=== PATIENT | male | born 1960 | race Caucasian/White ===

== ENCOUNTER → 2022-11-12 10:16 | Outpatient (BNVA) | payer OTHER, SELFPAY | PROVIDERS: PCP Internal Medicine; Visit Provider Nurse Practitioner Family | DX: J45.909 Unspecified asthma, uncomplicated (principal); R93.89 Abnormal findings on diagnostic imaging of other specified body structures; F17.200 Nicotine dependence, unspecified, uncomplicated; Z23 Encounter for immunization | CPT/HCPCS: 90471; 90677; 99202 ==

== ENCOUNTER 2022-12-19 11:00 | Outpatient (REF) | payer OTHER, SELFPAY | END 2022-12-19 11:01 | disposition home or self-care (01) | LOC: HO.RESP 11:00 | PROVIDERS: PCP Internal Medicine; Visit Provider Nurse Practitioner Family | DX: J45.909 Unspecified asthma, uncomplicated (principal) | CPT/HCPCS: 94060; 94727; 94729 ==

== ENCOUNTER 2023-01-14 10:36 | Outpatient (AMB) | payer OTHER, SELFPAY ==
[2023-01-14 11:04] VITALS: BP 128/68; PULSE 75; O2SAT 100; BMI 41.6
--- NOTE | 2023-01-14 11:04 | A.OFFVIS_ITS ---
Intake Vital Signs 01/14/23 11:04 Height 5 ft 6 in Weight 257 lb 15.053 oz BMI 41.6 BP 128/68 Blood Pressure Location Lt brachial Position Sitting Pulse 75 Pulse Source Pulse Oximeter Pulse Oximetry (%) 100 Oxygen Delivery Method Room Air Intake Visit Reasons: Cough Nurse Aide Required: No Supervisor Parking Lot: Supervisor Parking Lot offered & declined Accompanied by: Self / Same As Patient Allergies Sulfa (Sulfonamide Antibiotics) Allergy (Unknown, Verified 01/14/23 11:08) Unknown No Known Allergies Allergy (Unverified 11/12/22 10:26) Medication List - Last Reconciled 01/14/23 by Jacque Elizabeth LPN albuterol sulfate 90 mcg/actuation 2 puffs inhalation Q4-6H PRN aspirin 81 mg PO DAILY atorvastatin 80 mg PO BEDTIME azelastine (Astepro Allergy) 1 spray intranasal BID fluticasone propion-salmeterol 100-50 mcg/dose 1 inh inhalation BID hydrochlorothiazide 25 mg PO DAILY losartan 100 mg PO DAILY omeprazole 20 mg PO DAILY pregabalin 75 mg PO BID quinine-vitamin E caps PO tramadol 50 mg PO TID PRN HPI Cough HPI Details Ivan is a pleasant 61 year old male, current 1/2-1 pack per week with 20+ pack year history and underlying history of childhood asthma, environmental allergies and CVA with left sided residual weakness. He reports symptoms are reasonably controlled on Advair and Astepro. He reports significant improvements in dyspnea on exertion and wheezing since switching to Advair. Although he reports improvements in his cough, he has been using his albuterol 2-3 times per day after moderate exertion. He attributes the increase in symptoms over the past few weeks to environmental allergies and recent poor air quality. [facility] Social History (Updated 01/14/23 @ 11:10 by Jacque Elizabeth LPN) Patient Tobacco Use Status: Current everyday Tobacco user Tobacco use type: Cigarette Cigarettes Per Day: 5 Years Smoked: 30+ intermittently Review of Systems Const Denies chills, Denies excessive sweating, Denies fever(s), Denies headache(s) and Denies night sweats Eyes Denies dry eyes, Denies irritation and Denies itchy eyes ENT Reports Normal hearing present, Denies headache(s), Denies nasal congestion, Denies nasal discharge, Reports post nasal drip and Denies sore throat Card Denies chest pain, Denies chest pain at rest, Denies chest pain with activity, Denies leg edema, Denies dyspnea, Denies orthopnea and Denies paroxysmal nocturnal dyspnea Resp Denies chest congestion, Denies pain on inspiration, Denies pain with cough, Denies dyspnea, Denies stridor and Denies wheezing Musc Denies myalgias Neuro Reports Normal hearing present and Denies headache(s) Endo Denies excessive sweating Dominick/Lymph Denies lymphadenopathy Aller/Immun Denies itchy eyes, Denies seasonal rhinorrhea and Denies wheezing Physical Exam Vital Signs: Last Vital Signs Pulse 75 01/14/23 11:04 BP 128/68 01/14/23 11:04 Pulse Ox 100 01/14/23 11:04 Oxygen Delivery Method Room Air 01/14/23 11:04 BMI result Body Mass Index 41.6 Const General: cooperative, healthy appearing, comfortable, no acute distress, well developed and alert Nutritional Appearance: obese Orientation/consciousness: patient oriented x3 Limitations: ambulation with cane HEENT Head: Yes normal to inspection, Yes normocephalic and Yes atraumatic Ears: hearing grossly normal bilaterally and external ears normal Eyes General: appearance normal, both eyes and all related structures Eyelids: Yes eyelids normal Sclerae: sclerae normal EOM: EOMs intact bilaterally Neck Neck: Yes normal visual inspection and Yes no lymphadenopathy Lymphatic: no lymphadenopathy noted Chest Chest palpation & inspection: normal inspection of the chest Resp Effort & Inspection: normal respiratory effort, able to speak in complete sentences, no audible wheezes, no cough, no stridor, not tachypneic, no tripod positioning and no use of accessory muscles Auscultation: clear to auscultation bilaterally Cardio Jugular venous distension: no JVD Rate: regular rate Rhythm: regular rhythm Skin Other: warm, dry General skin exam: no rashes or lesions noted Neuro General: patient oriented x3 Cranial nerves: Yes Normal hearing present Cognition (Neuro): normal cognition Gait exam (Neuro): Normal gait present Extrem General: Yes normal to inspection, Yes capillary refill normal, Yes no clubbing, cyanosis or edema and Yes no pedal edema Psych Appearance: grossly normal and well kempt Speech and movement: Normal speech and movement present and Clear speech present Affect: normal affect Attitude: cooperative Thought process: Normal thought process present Thought content: Normal thought content present Insight: Good insight present (Psych) Judgement: Good judgement present (Psych) Results Reviewed Results Reviewed: Assessment & Plan Assessment & Plan (1) Abnormal finding on CT scan: Code(s): R93.89 - Abnormal findings on diagnostic imaging of other specified body structures (2) Tobacco dependence: Code(s): F17.200 - Nicotine dependence, unspecified, uncomplicated (3) Asthma-COPD overlap syndrome: Code(s): J44.9 - Chronic obstructive pulmonary disease, unspecified Plan Reviewed PFT which revealed findings consistent with asthma as he had significant response to bronchodilator as well as mild component of COPD. Given his increase in symptoms over the last few weeks and increased use of albuterol, recommended increasing Advair dose or adding Singulair, but patient would like to keep current regimen. Also advised patient to start a daily oral antihistamine. If symptoms worsen, instructed patient to contact office. Will follow up to review results of repeat chest CT in September 2023. Briefly we discussed his worsening chronic pain that has contributed to some deconditioning and therefore increased dyspnea. Will refer to pain management to discuss interventional options for spinal stenosis. All questions were answered and patient is in agreement of plan. Orders: Referrals Pain Management Referral M19.90 - Unspecified osteoarthritis, unspecified site, M48.00 - Spinal stenosis, site unspecified Coding Level of Care Code Est Pt Level 4 (86804) Diagnoses Abnormal finding on CT scan R93.89 Tobacco dependence F17.200 Asthma-COPD overlap syndrome J44.9
== END 2023-01-14 11:30 | disposition home or self-care (01) ==
PROVIDERS: PCP Internal Medicine; Visit Provider Nurse Practitioner Family
DX: R93.89 Abnormal findings on diagnostic imaging of other specified body structures (principal); F17.200 Nicotine dependence, unspecified, uncomplicated; J44.9 Chronic obstructive pulmonary disease, unspecified
CPT/HCPCS: 99214

== ENCOUNTER → 2023-01-14 10:36 | Outpatient (BNVA) | payer OTHER, SELFPAY | PROVIDERS: PCP Internal Medicine; Visit Provider Nurse Practitioner Family | DX: J44.9 Chronic obstructive pulmonary disease, unspecified (principal); R05.9 Cough, unspecified; I63.9 Cerebral infarction, unspecified; G81.94 Hemiplegia, unspecified affecting left nondominant side; F17.210 Nicotine dependence, cigarettes, uncomplicated | CPT/HCPCS: 99212 ==

== ENCOUNTER 2023-02-03 13:41 | Outpatient (AMB) | payer OTHER, SELFPAY ==
--- NOTE | 2023-02-03 13:47 | MHC.OFFVIS ---
Intake Vital Signs 02/03/23 13:49 Height 5 ft 6 in Weight 259 lb BMI 41.8 BP 134/63 Blood Pressure Location Lt brachial Position Sitting Respiration 4 L Pulse 88 Pulse Source Pulse Oximeter Intake Visit Reasons: Spinal stenosis, site unspecified Allergies Sulfa (Sulfonamide Antibiotics) Allergy (Unknown, Verified 02/03/23 13:51) Unknown Medication List - Last Reconciled 02/03/23 by Chelle Rivers LPN albuterol sulfate 90 mcg/actuation 2 puffs inhalation Q4-6H PRN aspirin 81 mg PO DAILY atorvastatin 80 mg PO BEDTIME azelastine (Astepro Allergy) 1 spray intranasal BID fluticasone propion-salmeterol 100-50 mcg/dose 1 inh inhalation BID hydrochlorothiazide 25 mg PO DAILY losartan 100 mg PO DAILY omeprazole 20 mg PO DAILY pregabalin 75 mg PO BID quinine-vitamin E caps PO tramadol 50 mg PO TID PRN HPI Spinal stenosis, site unspecified HPI Details The patient is a 62-year-old male referred by his pulmonary provider for spinal stenosis-related pain. He has had this pain in his lower back for many years, but it has gotten worse since 2021. It is described as 5-8/10 in intensity in the lower back. He also has polyarticular symptoms in his bilateral shoulders, bilateral knees, and ankles, as well as his right leg. He is unable to sleep normally or engage in his daily activities. Weather changes and movements make it worse, so heat, cool, topical medications, and oral medications make it feel better. He visited [facility], had an x-ray, was treated with tramadol, and was referred to physical therapy. He tried back braces and was referred back to [facility], where he had knee surgeries. [facility] diagnosed him with spinal stenosis. He had an MRI scan at [facility]. He states that his pain is affecting his standard of living and daily activities. He states that he is not able to follow his hobby. He had been diagnosed with clinical depression twice in the past and was on medication. He is not taking any medication for depression. He has been following up with his new neurologist. He denies any cardiac problems. He had both knee replacement surgeries in 2014. He has no history of diabetes mellitus. [facility] Medical History (Updated 02/02/23 @ 13:29 by Chuy Pratt) Benign hypertension Cerebral infarction due to stenosis of carotid artery Chronic fatigue syndrome Degeneration of lumbar intervertebral disc Dizziness and giddiness GERD (gastroesophageal reflux disease) Leyla filter in place Intermittent asthma Male erectile disorder Migraine without aura Osteoarthritis of knee Putti's syndrome Social History (Updated 01/14/23 @ 11:10 by Jacque Elizabeth LPN) Patient Tobacco Use Status: Current everyday Tobacco user Tobacco use type: Cigarette Cigarettes Per Day: 5 Years Smoked: 30+ intermittently Review of Systems Const All systems reviewed & are unremarkable except as noted in HPI and below Physical Exam Vital Signs: Last Vital Signs Pulse 88 02/03/23 13:49 Resp 4 L 02/03/23 13:49 BP 134/63 02/03/23 13:49 BMI result Body Mass Index 41.8 General: Appears afebrile. Alert and oriented. Mood and affect appropriate. Follows and participates in conversation appropriately. Respiratory effort is unlabored. Able to transition from sit to stand unassisted. Ambulates with bilaterally normal heel strike and toe off. He is able to stand on his toes and heels, but while standing on his toes, the right side feels subjectively weaker. Lumbar extension reproduces pain in the right lumbar area. Straight leg raise is mildly positive on the right side. Results Reviewed Results Reviewed: 12/26/21: MR LUMBAR SPINE Assessment & Plan Assessment & Plan (1) Spinal stenosis: Code(s): M48.00 - Spinal stenosis, site unspecified Plan 62-year-old male with multilevel DJD/DDD with most significant stenosis at L4-5 and mild stenosis at T12-L1 presenting with history of low back symptoms consistent with spinal stenosis with neurogenic claudication. After reviewing the MRI report, I left a voicemail for the patient to bring this a disc with the images so I can review them to assess candidacy for minimally invasive lumbar decompression at L4-5. Prior to that we can certainly offer an epidural steroid injection targeted towards right parasagittal L4-5 interspace and see how much benefit he might gain from that. His exam is consistent with lumbar radiculitis with mild weakness in the right lower extremity that would benefit from a decompression at some point in the future. Scribed for Dr. Busby by Chuy Pratt, medical appointment scheduler, on 02/03/2023. I, Dr. Busby, have personally reviewed and agree with the information entered by the scribe. Coding Level of Care Code New Pt Level 4 (85981) Diagnoses Spinal stenosis M48.00
[2023-02-03 13:49] VITALS: BP 134/63; PULSE 88; RESP 4; BMI 41.8
== END 2023-02-03 14:24 | disposition home or self-care (01) ==
PROVIDERS: PCP Internal Medicine; Visit Provider Internal Medicine
DX: M48.05 Spinal stenosis, thoracolumbar region (principal)
CPT/HCPCS: 99204

== ENCOUNTER → 2023-02-03 13:41 | Outpatient (BNVA) | payer OTHER, SELFPAY | PROVIDERS: PCP Internal Medicine; Visit Provider Internal Medicine | DX: M48.062 Spinal stenosis, lumbar region with neurogenic claudication (principal) | CPT/HCPCS: 99202 ==

== ENCOUNTER 2023-03-10 09:31 | Outpatient (AMB) | payer OTHER, SELFPAY ==
--- NOTE | 2023-03-10 09:18 | A.OFFVIS_ITS ---
Intake Intake Visit Reasons: discuss upcoming IVAN/options Allergies Sulfa (Sulfonamide Antibiotics) Allergy (Unknown, Verified 02/03/23 13:51) Unknown HPI discuss upcoming IVAN/options 2 HPI0 Details 62-year-old male who presents today on v ideo tele-health visit for a discussion of upcoming IVAN/options. The patient reports back pain. He states that his sciatica has been acting up and that he has pain in his leg. He reports pain with ambulation. The patient had had two injections in the past. The first steroid injection provided relief for two days, and the second injection did not provide any relief. Based on patient's description, it appears that he had an interlaminar epidural steroid injection which we were planning to do on this upcoming appointment. Given the lack of relief from prior such injections, the patient is interested in trialing different therapies. The patient had an MRI scan at [facility]. The MRI had shown facet arthritis in the lower lumbar segments as well as ligamentum flavum hypertrophy. He does endorse symptoms of neurogenic claudication including pain on walking, radiating pain down the lower extremity and having to walk while flexing forward. He is using a muscle relaxant with pain medication for pain management. 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 Migraine without aura Osteoarthritis of knee GERD (gastroesophageal reflux disease) Benign hypertension Dizziness and giddiness Male erectile disorder [place] filter in place Putti's syndrome Degeneration of lumbar intervertebral disc Intermittent asthma Social History (Updated 01/14/23 @ 11:10 by Jacque Elizabeth LPN) Patient Tobacco Use Status: Current everyday Tobacco user Tobacco use type: Cigarette Cigarettes Per Day: 5 Years Smoked: 30+ intermittently Review of Systems Const All systems reviewed & are unremarkable except as noted in HPI and below Physical Exam General: Appears afebrile. Alert and oriented. Mood and affect appropriate. Follows and participates in conversation appropriately. Respiratory effort is unlabored. Results Reviewed Results Reviewed: 03/07/23: MRI LUMBAR SPINE WO CONTRAST. Assessment & Plan Assessment & Plan (1) Spinal stenosis, lumbar region with neurogenic claudication: Code(s): M48.062 - Spinal stenosis, lumbar region with neurogenic claudication (2) Lumbar spondylosis: Code(s): M47.816 - Spondylosis without myelopathy or radiculopathy, lumbar region Plan I described the minimally invasive lumbar decompression procedure to the patient for his spinal stenosis related symptoms that have not responded to epidural steroid injections in the past. His MRI report notes ligamentum flavum hypertrophy but I will need to review his images prior to proceeding with that procedure. For the time being, we will change the upcoming schedule injection from interlaminar L4-5 epidural steroid injection to bilateral L3-L4-L5 diagnostic medial branch blocks given evidence of facet disease on his MRI report. Scribed for Dr. Busby by Chuy Pratt medical appointment clerk, on 03/10/2023. I, Dr. Busby, have personally reviewed and agree with the information entered by the scribe. Telehealth Telehealth Location of provider rendering services: practice address Location of patient: address on file Patient Identification confirmed using: Name, : Yes Telehealth method: video Patient verbally consented to treatment: Yes Patient verbally consented to billing insurance company: Yes Patient informed of any privacy concerns related to visit: Yes Minutes spent on Phone/Video with Pt.: 10 Coding Level of Care Code Tele Est Pt Level 4 (68177) Diagnoses Spinal stenosis, lumbar region with neurogenic claudication M48.062 Lumbar spondylosis M47.816
== END 2023-03-10 09:31 | disposition home or self-care (01) ==
LOC: HO.PMC 09:31
PROVIDERS: PCP Internal Medicine; Visit Provider Internal Medicine
DX: M48.062 Spinal stenosis, lumbar region with neurogenic claudication (principal); M47.816 Spondylosis without myelopathy or radiculopathy, lumbar region
CPT/HCPCS: 99214

== ENCOUNTER → 2023-03-10 09:31 | Outpatient (BNVA) | payer OTHER, SELFPAY | PROVIDERS: PCP Internal Medicine; Visit Provider Internal Medicine ==

== ENCOUNTER 2023-03-19 05:57 | Outpatient (REF) | payer OTHER, SELFPAY | END 2023-03-19 05:58 | disposition home or self-care (01) | LOC: CF 05:57 | PROVIDERS: Visit Provider Internal Medicine | DX: M48.062 Spinal stenosis, lumbar region with neurogenic claudication (principal); M47.816 Spondylosis without myelopathy or radiculopathy, lumbar region | CPT/HCPCS: 64493; 64494 ==

== ENCOUNTER 2023-03-19 08:26 | Outpatient (AMB) | payer OTHER, SELFPAY ==
--- NOTE | 2023-03-19 08:37 | MHC.OFFVIS ---
Intake Vital Signs 03/19/23 08:38 BP 112/52 L Blood Pressure Location Lt brachial Position Sitting Respiration 14 Pulse 66 Pulse Source Pulse Oximeter Pulse Oximetry (%) 98 Oxygen Delivery Method Room Air Intake Visit Reasons: Thad Dx L3-L4-L5 MBB Allergies Sulfa (Sulfonamide Antibiotics) Allergy (Unknown, Verified 03/19/23 08:38) Unknown HPI Thad Dx L3-L4-L5 MBB HPI Details Patient presents for scheduled procedure. Denies any recent cough, cold, infection, fever or other significant changes in medical history since last office visit. 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 Migraine without aura Osteoarthritis of knee GERD (gastroesophageal reflux disease) Benign hypertension Dizziness and giddiness Male erectile disorder [place] filter in place Putti's syndrome Degeneration of lumbar intervertebral disc Intermittent asthma Social History (Updated 01/14/23 @ 11:10 by Jacque Elizabeth LPN) Patient Tobacco Use Status: Current everyday Tobacco user Tobacco use type: Cigarette Cigarettes Per Day: 5 Years Smoked: 30+ intermittently Physical Exam Vital Signs: Last Vital Signs Pulse 66 03/19/23 08:38 Resp 14 03/19/23 08:38 BP 112/52 L 03/19/23 08:38 Pulse Ox 98 03/19/23 08:38 Oxygen Delivery Method Room Air 03/19/23 08:38 Office Procedures Lumbar/Sacral Facet Inj Details: Lumbar Medial Branch Block, Bilateral L3, L4 medial branches and L5 Dorsal Ramus (2 levels, 3 nerves) After obtaining written consent, pre-procedure blood pressure and pulse were recorded and are in the nursing record for review. The patient was placed in a prone position. The respective lumbosacral area was prepped with chloraprep and draped in sterile fashion. The skin over the target medial branch nerves was anesthetized with 0.5% lidocaine. A 22 gauge 3.5 inch needle was inserted into the target medial branch nerve under fluoroscopic guidance. No paresthesias were elicited with needle placement and aspiration was negative for blood and CSF. Next, 0.2cc of omnipaque 180 was injected to verify positioning. Next 0.5 ml 0.5% ropivicaine was injected (0.5cc total per level). The identical procedure was performed at the remaining levels. The skin was cleansed and a sterile bandage was applied. Following the procedure the patient's vital signs were stable. The patient tolerated the procedure well and no complications were encountered. Following the procedure the patient's vital signs were stable. The patient was discharged home in good condition with post-procedural instructions. Time Out: Immediately prior to the procedure, the following was verbally confirmed that there is a signed consent form and that the correct patient, planned procedure, site and side are consistent with documentation and that necessary equipment and/or blood products are available prior to the start of the case. Complications: none EBL: <5 cc 10882 - second level, with Fluoroscopy (bilateral) Procedure code (CPT) selection complete Results Reviewed Results Reviewed: 03/19/23 09:06 Lidocaine HCl 2 % MPF [Xylocaine 2 % MPF] 5 ml .ROUTE .[facility] Assessment & Plan Assessment & Plan (1) Lumbar spondylosis: Code(s): M47.816 - Spondylosis without myelopathy or radiculopathy, lumbar region Plan Patient is status post bilateral diagnostic L3, L4, L5 MBBs. Patient tolerated procedure well and was discharged home in stable condition with discharge instructions. All questions were answered. We will follow-up via telephone or in clinic to assess response to therapy. A follow-up appointment was made during today's visit. Orders: Orders FL guidance in treatment room Today M48.062 - Spinal stenosis, lumbar region with neurogenic claudication Coding Level of Care Code Procedure Only Diagnoses Lumbar spondylosis M47.816 CPT Codes Facet Injection-Lumbar/Sacral - CPT: 73609 - second level, with Fluoroscopy ([id number])
[2023-03-19 08:38] VITALS: BP 112/52; PULSE 66; RESP 14; O2SAT 98
== END 2023-03-19 09:40 | disposition home or self-care (01) ==
LOC: HO.PMCPRC 08:26
PROVIDERS: PCP Internal Medicine; Visit Provider Internal Medicine
DX: M47.816 Spondylosis without myelopathy or radiculopathy, lumbar region (principal)
CPT/HCPCS: 64493; 64494

== ENCOUNTER 2023-03-21 08:27 | Outpatient (AMB) | payer OTHER, SELFPAY ==
--- NOTE | 2023-03-21 08:27 | A.OFFVIS_ITS ---
Intake Vital Signs 03/21/23 08:29 Height 5 ft 6 in Weight 257 lb BMI 41.5 Blood Pressure Location Lt brachial Position Sitting Respiration 14 Pulse 44 L Pulse Source Pulse Oximeter Pulse Oximetry (%) 98 Oxygen Delivery Method Room Air Intake Visit Reasons: s/p elsa Dx L3-L4-L5 MBB Allergies Sulfa (Sulfonamide Antibiotics) Allergy (Unknown, Verified 03/21/23 08:31) Unknown Medication List - Last Reconciled 03/21/23 by Chelle Rivers LPN albuterol sulfate 90 mcg/actuation 2 puffs inhalation Q4-6H PRN aspirin 81 mg PO DAILY atorvastatin 80 mg PO BEDTIME azelastine (Astepro Allergy) 1 spray intranasal BID fluticasone propion-salmeterol 100-50 mcg/dose 1 inh inhalation BID hydrochlorothiazide 25 mg PO DAILY losartan 100 mg PO DAILY magnesium 200 mg PO BID melatonin 10 mg PO BEDTIME PRN omeprazole 20 mg PO DAILY pregabalin 75 mg PO BID quinine-vitamin E caps PO tramadol 50 mg PO TID PRN HPI s/p elsa Dx L3-L4-L5 MBB HPI Details 62-year-old male who presents today to t he office for a status post bilateral diagnostic L3-L4-L5 MBB. The patient reports 50% relief following the procedure. His pain has returned to the baseline without improvement. He states that his whole back is bothersome. He has noticed muscle stiffness and pain in the mornin g after waking up for the past two days. He has been taking tramadol and pregabalin. He has difficulty walking that started about one year ago. He has occasional numbness in his leg. He has no difficulty standing or sitting. He has been ?stumbling during ambulation? due to pain. He states that he has twisted his ankle twice last week. He has previously used TENS units without any significant relief and has discontinued using them. He states that as soon as he stopped using the device, his pain started to come back to baseline. His ambulation is mostly affected by the right side than the left side. He used to walk 1-2 miles every other day. He states that his back pain worsens with walking. He is . He has pain in his shoulder that radiates down to his arm. He reports constant daytime fatigue. He has a history of arthritis in the shoulder and neck pain. He had knee replacement in 2013. He had stroke in 2019 and has been taking baby aspirin since. Past procedure: 03/19/23: Lumbar Medial Branch Block, Bi lateral L3, L4 medial branches and L5 Dorsal Ramus (2 levels, 3 nerves): 50% relief. [facility] Medical History (Updated 03/10/23 @ 11:24 by Blaise Busby MD) Chronic fatigue syndrome Cerebral infarction due to stenosis of carotid artery Migraine without aura Osteoarthritis of knee GERD (gastroesophageal reflux disease) Benign hypertension Dizziness and giddiness Male erectile disorder Leyla filter in place Putti's syndrome Degeneration of lumbar intervertebral disc Intermittent asthma Social History (Updated 01/14/23 @ 11:10 by Jacqeu Elizabeth LPN) Patient Tobacco Use Status: Current everyday Tobacco user Tobacco use type: Cigarette Cigarettes Per Day: 5 Years Smoked: 30+ intermittently Review of Systems Const All systems reviewed & are unremarkable except as noted in HPI and below Physical Exam Vital Signs: Last Vital Signs Pulse 44 L 03/21/23 08:29 Resp 14 03/21/23 08:29 Pulse Ox 98 03/21/23 08:29 Oxygen Delivery Method Room Air 03/21/23 08:29 BMI result Body Mass Index 41.5 General: Appears afebrile. Alert and oriented. Mood and affect appropriate. Follows and participates in conversation appropriately. Respiratory effort is unlabored. Able to transition from sit to stand unassisted. Ambulates with bilaterally normal heel strike and toe off. Results Reviewed Results Reviewed: No imaging is available for review. Assessment & Plan Assessment & Plan (1) Spinal stenosis, lumbar region with neurogenic claudication: Code(s): M48.062 - Spinal stenosis, lumbar region with neurogenic claudication (2) Lumbar spondylosis: Code(s): M47.816 - Spondylosis without myelopathy or radiculopathy, lumbar region Plan Discussed the MILD procedure as a possible treatment option at this point for his lumbar spinal stenosis with neurogenic claudication. May consider medial branch nerve stimulation in the future for axial low back pain not responsive to spinal decompression. The patient will think about it and let us know when he is ready to proceed with the plan. The patient will follow up as needed. Scribed for Dr. Busby by Chuy Pratt, medical records analyst, on 03/21/2023. I, Dr. Busby, have personally reviewed and agree with the information entered by the scribe. Coding Level of Care Code Est Pt Level 3 (56919) Diagnoses Spinal stenosis, lumbar region with neurogenic claudication M48.062 Lumbar spondylosis M47.816
[2023-03-21 08:29] VITALS: PULSE 44; RESP 14; O2SAT 98; BMI 41.5
== END 2023-03-21 09:09 | disposition home or self-care (01) ==
PROVIDERS: PCP Internal Medicine; Visit Provider Internal Medicine
DX: M48.062 Spinal stenosis, lumbar region with neurogenic claudication (principal); M47.816 Spondylosis without myelopathy or radiculopathy, lumbar region
CPT/HCPCS: 99213

== ENCOUNTER → 2023-03-21 08:27 | Outpatient (BNVA) | payer OTHER, SELFPAY | PROVIDERS: PCP Internal Medicine; Visit Provider Internal Medicine | DX: M48.062 Spinal stenosis, lumbar region with neurogenic claudication (principal); M47.816 Spondylosis without myelopathy or radiculopathy, lumbar region | CPT/HCPCS: 99212 ==

== ENCOUNTER 2023-06-25 10:00 | Day surgery (SDC) | payer OTHER, SELFPAY ==
--- NOTE | 2023-06-24 08:22 | HO.ANESPROP2 ---
HPI - Anesthesia Eval Consult details Narrative: 62yo M for L3-L4-L5 Minimally Invasive Lumbar Decompression CVA 2019 d/t carotid stenosis. Stent placed. T/C with pt 06/24/22 - only prn f/u with cardiology and neuro at this time. Follows PCP regarding carotid stenosis. Denies CP/SOB with >4 mets. Only limited to pain. Asthma and bronchitis are stable. PMF Active Problems Active Problems: All Active Problems (Updated 03/10/23 @ 11:24 by Blaise Busby MD) Lumbar spondylosis (Acute) Spinal stenosis, lumbar region with neurogenic claudication (Acute) Osteoarthritis (Acute) Spinal stenosis (Acute) Asthma-COPD overlap syndrome (Acute) Abnormal finding on CT scan (Acute) Tobacco dependence (Acute) Asthma (Acute) Past Medical History Medical History (Updated 03/10/23 @ 11:24 by Blaise Busby MD) Chronic fatigue syndrome Cerebral infarction due to stenosis of carotid artery Migraine without aura Osteoarthritis of knee GERD (gastroesophageal reflux disease) Benign hypertension Dizziness and giddiness Male erectile disorder Leyla filter in place Putti's syndrome Degeneration of lumbar intervertebral disc Intermittent asthma Social History Social History (Updated 01/14/23 @ 11:10 by Jacque Elizabeth LPN) Patient Tobacco Use Status: Current everyday Tobacco user Tobacco use type: Cigarette Cigarettes Per Day: 4 Years Smoked: 30+ intermittently Use of substances other than those prescribed or required for medical reasons: No Are you DNR?: No Advance Directives: No Advance Directives Information Provided: Yes Meds Allergies Allergy/AdvReac Type Severity Reaction Status Date / Time Sulfa (Sulfonamide Allergy Unknown Unknown Verified 03/21/23 08:31 Antibiotics) Home Medications Medication Instructions Recorded Confirmed Last Taken Type albuterol sulfate 90 mcg/actuation 2 puff inhalation Q4-6H PRN sob 11/12/22 06/25/23 Unknown History aerosol inhaler aspirin 81 mg tablet,delayed 81 mg PO DAILY 11/12/22 06/25/23 06/15/23 History release atorvastatin 80 mg tablet 80 mg PO BEDTIME 11/12/22 06/25/23 Unknown History azelastine 205.5 mcg (0.15 %) 1 spray intranasal BID 11/12/22 03/21/23 Unknown History nasal spray (Astepro Allergy) fluticasone 100 mcg-salmeterol 50 1 inh inhalation BID 11/12/22 06/25/23 Unknown History mcg/dose blistr powdr for inhalation hydrochlorothiazide 25 mg tablet 25 mg PO DAILY 11/12/22 06/25/23 Unknown History losartan 100 mg tablet 100 mg PO DAILY 11/12/22 06/25/23 Unknown History omeprazole 20 mg capsule,delayed 20 mg PO DAILY 11/12/22 03/21/23 Unknown History release pregabalin 75 mg capsule 75 mg PO BID 11/12/22 06/25/23 Unknown History quinine-vitamin E capsule cap PO 11/12/22 03/21/23 Unknown History tramadol 50 mg tablet 50 mg PO TID PRN 11/12/22 03/21/23 Unknown History magnesium 200 mg tablet 200 mg PO BID 03/21/23 06/25/23 Unknown History melatonin 10 mg capsule 10 mg PO BEDTIME PRN 03/21/23 03/21/23 Unknown History Assessment and Plan Assessment Anesthesia Assessment: Chart Reviewed
[2023-06-25] VITALS (8 sets, daily range): BP systolic 133–146; BP diastolic 49–66; PULSE 65–72; RESP 10–18; TEMP 36.6–36.8; O2SAT 96–100; BMI 41.6
--- NOTE | ~2023-06-25 | FL_ITS ---
CLINICAL INDICATION: Lumbar spinal stenosis with neurogenic claudication. FINDINGS: Technical assistance and equipment were provided by the Department of Radiology during intraoperative fluoroscopy for percutaneous procedure. 6, limited fluoroscopic spot images are submitted. A radiologist was not present during the procedure. Initial image demonstrates the tip of a trocar to project over the mid lumbar spine at L5-L6. Subsequent images demonstrate a trocar and metallic device to project over a portion of the spine, probably the lumbar spine, but not otherwise characterized due to suboptimal anatomical landmarks on these additional images. The images are available for review on PACS. TOTAL FLUOROSCOPY TIME: 13 minutes. DOSE AREA PRODUCT: 19.0 Gy-cm2 (casas-centimeter squared) FL/FL guidance in OR IMPRESSION: Technical assistance and equipment provided by the Department of Radiology during intraoperative fluoroscopy, as above. Please see operative report for further details.
[2023-06-25] MEDS: Lactated Ringers 1,000 ML 100 ML IVCONT (11:24)
--- NOTE | 2023-06-25 11:28 | MHC.SHP ---
Pre-Procedural Eval Section A Date of Service: 06/25/23 The patient is an INPATIENT: No Changes since office visit: Yes Patient answered all questions The History & Physical has been completed within 30 days and I have reviewed it.: No Section B Chief Complaint: Spinal stenosis, lumbar region with neurogenic cla Relevant Family History (Specify if Yes): No Relevant Social History: None Present Medications: see Short Stay Collaborative assessment Medical History: No relevant PMH History of Previous Operations: No relevant previous surgery Allergies: Allergies Allergy/AdvReac Type Severity Reaction Status Date / Time Sulfa (Sulfonamide Allergy Unknown Unknown Verified 03/21/23 08:31 Antibiotics) Review of Systems Sugical H&P ROS: Negative: Constitution, Cardiovascular and Respiratory Exam Surgical H&P Exam: Normal: HEENT, Normal: Heart and Normal: Lungs Plan Diagnosis/Plan: Unchanged I have reviewed the history and physical and performed a pertinent physical examination on my patient. No changes have occurred unless specified. Proceed with L-4/5 MILD. Time Spent With Patient Time: Total time managing care of this patient today ____ minutes.
--- NOTE | 2023-06-25 11:40 | HO.ANESPROP2 ---
[facility] Active Problems Active Problems: All Active Problems (Updated 03/10/23 @ 11:24 by Blaise Busby MD) Lumbar spondylosis (Acute) Spinal stenosis, lumbar region with neurogenic claudication (Acute) Osteoarthritis (Acute) Spinal stenosis (Acute) Asthma-COPD overlap syndrome (Acute) Abnormal finding on CT scan (Acute) Tobacco dependence (Acute) Asthma (Acute) Past Medical History Medical History (Updated 03/10/23 @ 11:24 by Blaise Busby MD) Chronic fatigue syndrome Cerebral infarction due to stenosis of carotid artery Migraine without aura Osteoarthritis of knee GERD (gastroesophageal reflux disease) Benign hypertension Dizziness and giddiness Male erectile disorder [place] filter in place Putti's syndrome Degeneration of lumbar intervertebral disc Intermittent asthma Family History Family history of problems with anesthesia: No Surgical History History of Problems with Anesthesia: No Social History Social History (Updated 01/14/23 @ 11:10 by Jacque Elizabeth LPN) Patient Tobacco Use Status: Current everyday Tobacco user Tobacco use type: Cigarette Cigarettes Per Day: 4 Years Smoked: 30+ intermittently Use of substances other than those prescribed or required for medical reasons: No Are you DNR?: No Advance Directives: No Advance Directives Information Provided: Yes Meds Allergies Allergy/AdvReac Type Severity Reaction Status Date / Time Sulfa (Sulfonamide Allergy Unknown Unknown Verified 03/21/23 08:31 Antibiotics) Active Medications: Current Medications Albuterol Sulfate (Albuterol Sulfate (0.083%) 2.5 Mg/3 Ml Vial.Neb) 2.5 mg INHALE ONCE PRN PRN Reason: Shortness of Breath/Wheezing Lactated Ringer's (Lr) 1,000 mls @ 100 mls/hr IVCONT .Q10H ANY Last Admin: 06/25/23 11:24 Dose: 100 mls/hr Home Medications Medication Instructions Recorded Confirmed Last Taken Type albuterol sulfate 90 mcg/actuation 2 puff inhalation Q4-6H PRN sob 11/12/22 06/25/23 Unknown History aerosol inhaler aspirin 81 mg tablet,delayed 81 mg PO DAILY 11/12/22 06/25/23 06/15/23 History release atorvastatin 80 mg tablet 80 mg PO BEDTIME 11/12/22 06/25/23 Unknown History azelastine 205.5 mcg (0.15 %) 1 spray intranasal BID 11/12/22 03/21/23 Unknown History nasal spray (Astepro Allergy) fluticasone 100 mcg-salmeterol 50 1 inh inhalation BID 11/12/22 06/25/23 Unknown History mcg/dose blistr powdr for inhalation hydrochlorothiazide 25 mg tablet 25 mg PO DAILY 11/12/22 06/25/23 Unknown History losartan 100 mg tablet 100 mg PO DAILY 11/12/22 06/25/23 Unknown History omeprazole 20 mg capsule,delayed 20 mg PO DAILY 11/12/22 03/21/23 Unknown History release pregabalin 75 mg capsule 75 mg PO BID 11/12/22 06/25/23 Unknown History quinine-vitamin E capsule cap PO 11/12/22 03/21/23 Unknown History tramadol 50 mg tablet 50 mg PO TID PRN 11/12/22 03/21/23 Unknown History magnesium 200 mg tablet 200 mg PO BID 03/21/23 06/25/23 Unknown History melatonin 10 mg capsule 10 mg PO BEDTIME PRN 03/21/23 03/21/23 Unknown History Exam Height,Weight and Vital Signs: Height 5 ft 6 in Weight 116.8 kg Last Vital Signs Temp 98.3 F 06/25/23 11:10 Pulse 68 06/25/23 11:10 Resp 16 06/25/23 11:10 BP 146/63 H 06/25/23 11:10 Pulse Ox 99 06/25/23 11:10 O2 Del Method Room Air 06/25/23 11:10 Airway Mallampati Class: III TM Dist: >3cm Neck ROM: Full Lungs: prolonged expiration Assessment and Plan Assessment Anesthesia Assessment: Anesthesia Plan Discussed and Chart Reviewed Final Anesthetic Review Family History of Problems with Anesthesia: No History of Problems with Anesthesia: No NPO: Yes ASA Class: III Final Preanesthetic Review: No Changes in Pt Med Stat, Meds/Allgs Chart Reviewed, Consent Obtained/Reviewed and Anes Risks/Benef Reviewed Patient Risk: Intermediate Procedure Risk: Low Anesthetic Plan Anesthetic Plan: TIVA Disposition: Standard PACU
[2023-06-25] MEDS: Albuterol Sulfate (0.083%) 2.5 MG/3 ML VIAL.NEB INHALE (12:11)
[2023-06-25 12:49] LABS: MRSA Nasal PCR NEGATIVE (Negative); SA Nasal PCR NEGATIVE (Negative)
--- NOTE | 2023-06-25 14:34 | PM.OP ---
Brief Operative Note Date of Service: 06/25/23 Pre-op diagnosis: Lumbar spinal stenosis with neurogenic claudication Post-op diagnosis: same Procedure: L4-5, L5-S1 (L6) minimally invasive lumbar decompression Implants: None Surgeon: Blaise Busby MD Anesthesia: MAC Was an Director Of Pulmonary Unit used for this Procedure?: No Estimated blood loss (mL): 5 Pathology: none sent Condition: stable Disposition: PACU
--- NOTE | 2023-06-25 14:35 | P.OP_ITS ---
Operative Note Operative Note Date of Service: 06/25/23 Narrative: Minimally Invasive Lumbar Decompression, Bilateral, L4-5, L5-S1 (L6) After informed consent, patient was brought to the operating room. The patient was placed in the prone position in the fluoroscopy suite with blankets (bolster) under the hips to assist with reversing lordosis of the spine. Following IV sedation and antibiotic administration, the patient was prepped and draped in my usual standard fashion. Time-out was performed to confirm site and level of intervention. Upon fluoroscopic imaging, it was noted that the patient has 6 lumbar type vertebral bodies. This was not previously noted on his MRI report. The MRI report was reviewed once again. The L4-5 and L5-S1 levels were both erroneously identified as L4-5. Based on MRI report findings, decision was made to proceed with the intervention at both the L4-5 for [id number] spinal stenosis and L5-S1 for moderate spinal stenosis. Both levels were noted to have thickened ligamentum flavum. Ample amounts of local anesthetic were used to anesthetize the skin and deep facial planes after topographical landmarks were identified. Procedural safety barriers were established by utilizing a contralateral oblique (CONCHA) view to visualize the ventral interlaminar line (VILL). Instruments remained posterior to the VILL during the percutaneous lumbar decompression procedure. A small midline incision was made with a sharp scalpel blade, and a trocar with portal was inserted percutaneously under fluoroscopic guidance to contact the lamina indicated. The trocar and portal were tugged to the right side to approach the right interlaminar space first. A bone-sculpting rongeur was inserted to remove adequate amounts of lamina (laminotomy) from the superior surface of the inferior operative lamina site and from the inferior aspect of t he lamina above it. The laminotomy created a passage for the tissue sculpting instrument used in debulking the ligamentum flavum. The ligamentum flavum was debulked until diminished returns. A similar procedure was performed on the contralateral side and then on both sides at the level below. There were no complications or difficulties noted with these procedures. Upon completion of the procedure, instruments were removed, hemostasis was achieved by direct pressure, and wound closure was performed with dermabond and steristrips. The patient tolerated the procedure well. Upon transferring the patient to the recovery room, the patient?s vital signs remained stable and without any neurologic deficits. The patient was discharged with instructions to rest, continue with ice, and to demonstrate progressive mobility. The patient was given a follow-up exam time and date along with instructions and contact information for any questions or concerns. The patient is to be followed up in the office for further evaluation and treatment, as deemed appropriate and necessary, and for any concerns regarding the procedure.
== END 2023-06-25 15:25 | disposition home or self-care (01) ==
PROVIDERS: Registered Nurse Emergency; PCP Internal Medicine; Visit Provider Internal Medicine
PROC: (CPT 0275T; principal; 2023-06-25 11:30)
DX: M48.062 Spinal stenosis, lumbar region with neurogenic claudication (principal); Z00.6 Encounter for examination for normal comparison and control in clinical research program; M47.816 Spondylosis without myelopathy or radiculopathy, lumbar region; I10 Essential (primary) hypertension; G93.32 Myalgic encephalomyelitis/chronic fatigue syndrome; G83.9 Paralytic syndrome, unspecified; J45.909 Unspecified asthma, uncomplicated; Z86.73 Personal history of transient ischemic attack (TIA), and cerebral infarction without residual deficits; Z79.82 Long term (current) use of aspirin; Z79.51 Long term (current) use of inhaled steroids; Z79.899 Other long term (current) drug therapy; Z88.2 Allergy status to sulfonamides; F17.210 Nicotine dependence, cigarettes, uncomplicated
CPT/HCPCS: 0275T; 87640; 87641; 94640; C1889; J0690; J1100; J1885; J2250; J2405; J2704; J2795; J3010

== ENCOUNTER → 2023-06-25 10:00 | Outpatient (BNV) | payer OTHER, SELFPAY | PROVIDERS: PCP Internal Medicine; Visit Provider Internal Medicine | DX: M48.062 Spinal stenosis, lumbar region with neurogenic claudication (principal) | CPT/HCPCS: 0275T ==

== ENCOUNTER 2023-07-07 10:48 | Outpatient (AMB) | payer OTHER, SELFPAY ==
--- NOTE | 2023-07-07 10:54 | MHC.OFFVIS ---
Intake Vital Signs 07/07/23 10:56 Height 5 ft 6 in Weight 260 lb BMI 42.0 BP 139/69 Blood Pressure Location Lt brachial Position Sitting Respiration 12 Pulse 105 H Pulse Source Pulse Oximeter Pulse Oximetry (%) 98 Oxygen Delivery Method Room Air Intake Visit Reasons: S/p MILD of L3-L4-L5 06/25/22/confirmed Allergies Sulfa (Sulfonamide Antibiotics) Allergy (Unknown, Verified 07/07/23 10:59) Unknown Medication List - Last Reconciled 07/07/23 by Chelle Rivers LPN albuterol sulfate 90 mcg/actuation 2 puffs inhalation Q4-6H PRN aspirin 81 mg PO DAILY atorvastatin 80 mg PO BEDTIME azelastine (Astepro Allergy) 1 spray intranasal BID fluticasone propion-salmeterol 100-50 mcg/dose 1 inh inhalation BID hydrochlorothiazide 25 mg PO DAILY losartan 100 mg PO DAILY magnesium 200 mg PO BID melatonin 10 mg PO BEDTIME PRN omeprazole 20 mg PO DAILY pregabalin 75 mg PO BID quinine-vitamin E caps PO tramadol 50 mg PO TID PRN HPI S/p MILD of L3-L4-L5 06/25/22/confirmed HPI Details 62-year-old male who presents today to the office for a status post MILD of L3-L4-L5. The patient reports 60?70% relief following the procedure. He states that his low back pain has significantly improved. He had occasional numbness in his leg, which is resolved. He has no difficulty standing or sitting. He states that his ?stumbling during ambulation? has also been resolved since the procedure. He still has mild discomfort, which is not bothersome. He has a mild worsening of pain from strenuous activities. He has been avoiding any sudden bending or extending activities. He is also working on his weight-loss management. He has been physically active at home. He has reduced his tramadol dose. He reports having neck pain and severe headaches. He has a history of chronic migraines. He has difficulty looking down due to pain. Past procedures: 06/25/23: Minimally Invasive Lumbar Decompression, Bilateral, L4-5, L5-S1 (L6): 60-70% relief. 03/19/23: Lumbar Medial Branch Block, Bilateral L3, L4 medial branches and L5 Dorsal Ramus (2 levels, 3 nerves): 50% relief. [facility] Medical History (Updated 07/22/23 @ 11:26 by Blaise Busby MD) Chronic fatigue syndrome Cerebral infarction due to stenosis of carotid artery Migraine without aura Osteoarthritis of knee GERD (gastroesophageal reflux disease) Benign hypertension Dizziness and giddiness Male erectile disorder Driver filter in place Putti's syndrome Degeneration of lumbar intervertebral disc Intermittent asthma Social History (Updated 01/14/23 @ 11:10 by Jacque Elizabeth LPN) Patient Tobacco Use Status: Current everyday Tobacco user Tobacco use type: Cigarette Cigarettes Per Day: 4 Years Smoked: 30+ intermittently Review of Systems Const All systems reviewed & are unremarkable except as noted in HPI and below Physical Exam Vital Signs: Last Vital Signs Pulse 105 H 07/07/23 10:56 Resp 12 07/07/23 10:56 BP 139/69 07/07/23 10:56 Pulse Ox 98 07/07/23 10:56 Oxygen Delivery Method Room Air 07/07/23 10:56 BMI result Body Mass Index 42.0 General: Appears afebrile. Alert and oriented. Mood and affect appropriate. Follows and participates in conversation appropriately. Respiratory effort is unlabored. Able to transition from sit to stand unassisted. Ambulates with bilaterally normal heel strike and toe off. Results Reviewed Results Reviewed: No imaging is available for review. Assessment & Plan Assessment & Plan (1) Spinal stenosis, lumbar region with neurogenic claudication: Code(s): M48.062 - Spinal stenosis, lumbar region with neurogenic claudication (2) Cervical spondylosis: Code(s): M47.812 - Spondylosis without myelopathy or radiculopathy, cervical region Plan We discussed RFA as a possible treatment option for his neck pain. Will schedule him for a bilateral C3-C4-C5 medial branch block for potential RFA. Discussed the risks and benefits of the procedure with the patient in detail. All questions were answered. The patient is on board with the plan. Justification for interventional therapy: ? Patient with average pain > 6/10 ? Patient has exhausted conservative therapy Scribed for Dr. Busby by Chuy Pratt, family practice medical doctor, on 07/07/2023. I, Dr. Busby, have personally reviewed and agree with the information entered by the scribe. Coding Level of Care Code Est Pt Level 3 (52197) Diagnoses Spinal stenosis, lumbar region with neurogenic claudication M48.062 Cervical spondylosis M47.812
[2023-07-07 10:56] VITALS: BP 139/69; PULSE 105; RESP 12; O2SAT 98; BMI 42.0
== END 2023-07-07 11:31 | disposition home or self-care (01) ==
PROVIDERS: PCP Internal Medicine; Visit Provider Internal Medicine
DX: M48.062 Spinal stenosis, lumbar region with neurogenic claudication (principal); M47.812 Spondylosis without myelopathy or radiculopathy, cervical region
CPT/HCPCS: 99213

== ENCOUNTER → 2023-07-07 10:48 | Outpatient (BNVA) | payer OTHER, SELFPAY | PROVIDERS: PCP Internal Medicine; Visit Provider Internal Medicine | DX: M48.062 Spinal stenosis, lumbar region with neurogenic claudication (principal); M47.812 Spondylosis without myelopathy or radiculopathy, cervical region | CPT/HCPCS: 99212 ==

== ENCOUNTER 2023-07-31 06:01 | Outpatient (REF) | payer OTHER, SELFPAY ==
--- NOTE | ~2023-07-31 | FL_ITS ---
EXAMINATION: Intraoperative fluoroscopy CLINICAL INFORMATION: Spondylosis COMPARISON: None. TECHNIQUE: Intraoperative fluoroscopy was provided for use by Dr. Busby. A total of 2 images were saved to PACS. A radiologist was not present during imaging. Today's dictation is only for administrative purposes to document intraoperative fluoroscopic usage. TOTAL FLUOROSCOPIC TIME: 0.2 minutes DAP: 0.016 mGy-cm FL/FL guidance in treatment room FINDINGS~\^^ Intraoperative fluoroscopy provided for use by Dr. Busby. Please see operative note for detailed findings.
== END 2023-07-31 06:02 | disposition home or self-care (01) ==
LOC: CF 06:01
PROVIDERS: Visit Provider Internal Medicine
DX: M47.812 Spondylosis without myelopathy or radiculopathy, cervical region (principal)
CPT/HCPCS: 64490; 64491; J2795

== ENCOUNTER 2023-07-31 08:32 | Outpatient (AMB) | payer OTHER, SELFPAY ==
--- NOTE | 2023-07-31 08:30 | MHC.OFFVIS ---
Intake Vital Signs 07/31/23 08:37 07/31/23 09:13 Height 5 ft 6 in 5 ft 6 in Weight 255 lb 255 lb BMI 41.2 41.2 BP 120/68 132/68 Blood Pressure Location Rt brachial Rt brachial Position Sitting Sitting Respiration 16 16 Pulse 76 72 Pulse Source Pulse Oximeter Pulse Oximeter Pulse Oximetry (%) 98 99 Oxygen Delivery Method Room Air Room Air Comment Pre-Op post-Op Intake Visit Reasons: Left Dx C3-C4-C5 MBB Beater And Pulper Feeder Required: No Accompanied by: Self / Same As Patient Allergies Sulfa (Sulfonamide Antibiotics) Allergy (Unknown, Verified 07/31/23 08:38) Unknown HPI Left Dx C3-C4-C5 MBB HPI Details Patient presents for scheduled procedure. Denies any recent cough, cold, infection, fever or other significant changes in medical history since last office visit. [facility] Medical History (Updated 07/22/23 @ 11:26 by Blaise Busby MD) Chronic fatigue syndrome Cerebral infarction due to stenosis of carotid artery Migraine without aura Osteoarthritis of knee GERD (gastroesophageal reflux disease) Benign hypertension Dizziness and giddiness Male erectile disorder Le[place] filter in place Putti's syndrome Degeneration of lumbar intervertebral disc Intermittent asthma Social History (Updated 01/14/23 @ 11:10 by Jacque Elizabeth LPN) Patient Tobacco Use Status: Current everyday Tobacco user Tobacco use type: Cigarette Cigarettes Per Day: 4 Years Smoked: 30+ intermittently Physical Exam Vital Signs: Last Vital Signs Pulse 72 07/31/23 09:13 Resp 16 07/31/23 09:13 BP 132/68 07/31/23 09:13 Pulse Ox 99 07/31/23 09:13 Oxygen Delivery Method Room Air 07/31/23 09:13 BMI result Body Mass Index 41.2 Office Procedures Cervical/Thoracic Facet Inj Details: Diagnostic Cervical Medial Branch Block, Left C3, C4, C5 medial branches After obtaining written consent, pre-procedure blood pressure and pulse were recorded and are in the nursing record for review. The patient was placed in a lateral position. The respective cervical area was prepped with chloraprep and draped in sterile fashion. The skin over the target medial branch nerves was anesthetized with 0.5% lidocaine. A 25 gauge 1.5 inch needle was inserted into the target medial branch nerve under fluoroscopic guidance. No paresthesias were elicited with needle placement and aspiration was negative for blood and CSF. Next, 0.2cc of omnipaque 180 was injected to verify positioning. Next 0.5 ml 0.5% ropivicaine was injected (0.5 cc total per level). The identical procedure was performed at the remaining levels. The skin was cleansed and a sterile bandage was applied. Following the procedure the patient's vital signs were stable. The patient tolerated the procedure well and no complications were encountered. Following the procedure the patient's vital signs were stable. The patient was discharged home in good condition with post-procedural instructions. Time Out: Immediately prior to the procedure, the following was verbally confirmed that there is a signed consent form and that the correct patient, planned procedure, site and side are consistent with documentation and that necessary equipment and/or blood products are available prior to the start of the case. Complications: none EBL: <5 cc 56494 - with Fluoroscopy 55650 - second level, with Fluoroscopy Procedure code (CPT) selection complete Assessment & Plan Assessment & Plan (1) Cervical spondylosis: Code(s): M47.812 - Spondylosis without myelopathy or radiculopathy, cervical region Plan Patient is status post left diagnostic C3, C4, C5 medial branch blocks. Patient tolerated procedure well and was discharged home in stable condition with discharge instructions. All questions were answered. We will follow-up via telephone or in clinic to assess response to therapy. A follow-up appointment was made during today's visit. Orders: Orders FL guidance in treatment room Today M47.812 - Spondylosis without myelopathy or radiculopathy, cervical region Coding Level of Care Code Procedure Only Diagnoses Cervical spondylosis M47.812 CPT Codes Facet Injection Cervical/Thoracic - CPT: 82096 - with Fluoroscopy ([id number]) Facet Injection Cervical/Thoracic - CPT: 77627 - second level, with Fluoroscopy ([id number])
[2023-07-31 08:37] VITALS: BP 120/68; PULSE 76; RESP 16; O2SAT 98; BMI 41.2
[2023-07-31 09:13] VITALS: BP 132/68; PULSE 72; RESP 16; O2SAT 99; BMI 41.2
== END 2023-07-31 09:22 | disposition home or self-care (01) ==
LOC: HO.PMCPRC 08:32
PROVIDERS: PCP Internal Medicine; Visit Provider Internal Medicine
DX: M47.812 Spondylosis without myelopathy or radiculopathy, cervical region (principal)
CPT/HCPCS: 64490; 64491

== ENCOUNTER 2023-08-07 06:08 | Outpatient (REF) | payer OTHER, SELFPAY ==
--- NOTE | ~2023-08-07 | FL_ITS ---
EXAMINATION: XR FLUOROSCOPY WITH IMAGES CLINICAL INFORMATION: Cervical spondylosis, without myelopathy or radiculopathy. COMPARISON: Prior examinations, most recently 07/31/2023. TECHNIQUE: Fluoroscopy Supervised By: Dr. Na Reynolds. Fluoroscopy Time: 0.1 minutes. Cumulative Dose: 3.57 mGy. DAP: 0.0365 Gycm2. Images: 2. FINDINGS: 3 needles are identified with tips directed at mid rightward cervical posterior elements. There is injected contrast. FL/FL guidance in treatment room IMPRESSION: Intraoperative fluoroscopic guidance is provided during right cervical pain management procedure. Please see the patient's Operative Report for full procedural details.
== END 2023-08-07 06:09 | disposition home or self-care (01) ==
LOC: CF 06:08
PROVIDERS: Visit Provider Internal Medicine
DX: M47.812 Spondylosis without myelopathy or radiculopathy, cervical region (principal)
CPT/HCPCS: 64490; 64491; J2795; Q9967

== ENCOUNTER 2023-08-07 08:52 | Outpatient (AMB) | payer OTHER, SELFPAY ==
[2023-08-07 09:01] VITALS: BP 136/72; PULSE 71; RESP 16; O2SAT 97; BMI 41.2
--- NOTE | 2023-08-07 09:01 | MHC.OFFVIS ---
Intake Vital Signs 08/07/23 09:01 08/07/23 09:54 Height 5 ft 6 in Weight 255 lb BMI 41.2 BP 136/72 124/72 Blood Pressure Location Lt brachial Lt brachial Position Sitting Sitting Respiration 16 18 Pulse 71 78 Pulse Source Pulse Oximeter Pulse Oximeter Pulse Oximetry (%) 97 97 Oxygen Delivery Method Room Air Room Air Comment Pre-Op Post-Op Intake Visit Reasons: Right Dx C3-C4-C5 MBB Allergies Sulfa (Sulfonamide Antibiotics) Allergy (Unknown, Verified 07/31/23 08:38) Unknown HPI Right Dx C3-C4-C5 MBB HPI Details Patient presents for scheduled procedure. Denies any recent cough, cold, infection, fever or other significant changes in medical history since last office visit. [facility] Medical History (Updated 07/22/23 @ 11:26 by Blaise Busby MD) Chronic fatigue syndrome Cerebral infarction due to stenosis of carotid artery Migraine without aura Osteoarthritis of knee GERD (gastroesophageal reflux disease) Benign hypertension Dizziness and giddiness Male erectile disorder [place] filter in place Putti's syndrome Degeneration of lumbar intervertebral disc Intermittent asthma Social History (Updated 01/14/23 @ 11:10 by Jacque Elizabeth LPN) Patient Tobacco Use Status: Current everyday Tobacco user Tobacco use type: Cigarette Cigarettes Per Day: 4 Years Smoked: 30+ intermittently Physical Exam Vital Signs: Last Vital Signs Pulse 71 08/07/23 09:01 Resp 16 08/07/23 09:01 BP 136/72 08/07/23 09:01 Pulse Ox 97 08/07/23 09:01 Oxygen Delivery Method Room Air 08/07/23 09:01 BMI result Body Mass Index 41.2 Office Procedures Cervical/Thoracic Facet Inj Details: Diagnostic Cervical Medial Branch Block, Right C3, C4, C5 medial branches After obtaining written consent, pre-procedure blood pressure and pulse were recorded and are in the nursing record for review. The patient was placed in a lateral position. The respective cervical area was prepped with chloraprep and draped in sterile fashion. A 25 gauge 1.5 inch needle was inserted into the target medial branch nerve under fluoroscopic guidance. No paresthesias were elicited with needle placement and aspiration was negative for blood and CSF. Next, 0.2cc of omnipaque 180 was injected to verify positioning. Next 0.5 ml 0.5% bupivicaine was injected (0.5 cc total per level). The identical procedure was performed at the remaining levels. The skin was cleansed and a sterile bandage was applied. Following the procedure the patient's vital signs were stable. The patient tolerated the procedure well and no complications were encountered. Following the procedure the patient's vital signs were stable. The patient was discharged home in good condition with post-procedural instructions. Time Out: Immediately prior to the procedure, the following was verbally confirmed that there is a signed consent form and that the correct patient, planned procedure, site and side are consistent with documentation and that necessary equipment and/or blood products are available prior to the start of the case. Complications: none EBL: <5 cc 04086 - second level, with Fluoroscopy Procedure code (CPT) selection complete Assessment & Plan Assessment & Plan (1) Cervical spondylosis: Code(s): M47.812 - Spondylosis without myelopathy or radiculopathy, cervical region Plan Patient is status post right C3, C4, C5 diagnostic medial branch blocks. Patient tolerated procedure well and was discharged home in stable condition with discharge instructions. All questions were answered. We will follow-up via telephone or in clinic to assess response to therapy. A follow-up appointment was made during today's visit. Orders: Orders FL guidance in treatment room Today M47.812 - Spondylosis without myelopathy or radiculopathy, cervical region Coding Level of Care Code Procedure Only Diagnoses Cervical spondylosis M47.812 CPT Codes Facet Injection Cervical/Thoracic - CPT: 45249 - second level, with Fluoroscopy ([id number])
[2023-08-07 09:54] VITALS: BP 124/72; PULSE 78; RESP 18; O2SAT 97
== END 2023-08-07 10:01 | disposition home or self-care (01) ==
LOC: HO.PMCPRC 08:52
PROVIDERS: PCP Internal Medicine; Visit Provider Internal Medicine
DX: M47.812 Spondylosis without myelopathy or radiculopathy, cervical region (principal)
CPT/HCPCS: 64490; 64491

== ENCOUNTER 2023-08-08 09:51 | Outpatient (AMB) | payer OTHER, SELFPAY ==
--- NOTE | 2023-08-08 10:07 | MHC.OFFVIS ---
Intake Vital Signs 08/08/23 10:08 Height 5 ft 6 in Weight 255 lb BMI 41.2 BP 119/57 L Blood Pressure Location Lt brachial Position Sitting Respiration 12 Pulse 93 Pulse Source Pulse Oximeter Pulse Oximetry (%) 98 Oxygen Delivery Method Room Air Intake Visit Reasons: s/p elsa dx C3-C4-C5 MBB/lvm Allergies Sulfa (Sulfonamide Antibiotics) Allergy (Unknown, Verified 08/08/23 10:09) Unknown Medication List - Last Reconciled 08/08/23 by Chelle Rivers LPN albuterol sulfate 90 mcg/actuation 2 puffs inhalation Q4-6H PRN aspirin 81 mg PO DAILY atorvastatin 80 mg PO BEDTIME azelastine (Astepro Allergy) 1 spray intranasal BID fluticasone propion-salmeterol 100-50 mcg/dose 1 inh inhalation BID hydrochlorothiazide 25 mg PO DAILY losartan 100 mg PO DAILY magnesium 200 mg PO BID melatonin 10 mg PO BEDTIME PRN omeprazole 20 mg PO DAILY pregabalin 75 mg PO BID tramadol 50 mg PO TID PRN HPI s/p elsa dx C3-C4-C5 MBB/lvm HPI Details 62-year-old male who presents today to the office for a status post bilateral diagnostic C3-C4-C5 MBB. The patient reports 60% relief on the left side and 70% on the right side for the first round. He reports neck and shoulder pain, which is worse with movements. He states that his right side is worse than his left side. He reports stiffness in his neck and notices crackling sounds when moving his neck sideways. He states that he wakes up in the morning in pain. He is able to sleep on the side. His headaches have improved significantly. His back pain is stable. His hip pain alleviates with walking, but he is able to walk only 3?3.5 miles. He has knee pain. He has been doing home exercises, including core strengthening, squads, and calf raises. Past procedures: 08/07/2023: Diagnostic Cervical Medial Branch Block, Right C3, C4, C5 medial branches: % relief. 07/31/2023: Diagnostic Cervical Medial Branch Block, Left C3, C4, C5 medial branches: % relief. 06/25/23: Minimally Invasive Lumbar Decompression, Bilateral, L4-5, L5-S1 (L6): 60-70% relief. 03/19/23: Lumbar Medial Branch Block, Bilateral L3, L4 medial branches and L5 Dorsal Ramus (2 levels, 3 nerves): 50% relief. [facility] Medical History (Updated 07/22/23 @ 11:26 by Blaise Busby MD) Chronic fatigue syndrome Cerebral infarction due to stenosis of carotid artery Migraine without aura Osteoarthritis of knee GERD (gastroesophageal reflux disease) Benign hypertension Dizziness and giddiness Male erectile disorder [place] filter in place Putti's syndrome Degeneration of lumbar intervertebral disc Intermittent asthma Social History (Updated 01/14/23 @ 11:10 by Jacque Elizabeth LPN) Patient Tobacco Use Status: Current everyday Tobacco user Tobacco use type: Cigarette Cigarettes Per Day: 4 Years Smoked: 30+ intermittently Review of Systems Const All systems reviewed & are unremarkable except as noted in HPI and below Physical Exam Vital Signs: Last Vital Signs Pulse 93 08/08/23 10:08 Resp 12 08/08/23 10:08 BP 119/57 L 08/08/23 10:08 Pulse Ox 98 08/08/23 10:08 Oxygen Delivery Method Room Air 08/08/23 10:08 BMI result Body Mass Index 41.2 General: Appears afebrile. Alert and oriented. Mood and affect appropriate. Follows and participates in conversation appropriately. Respiratory effort is unlabored. Able to transition from sit to stand unassisted. Ambulates with bilaterally normal heel strike and toe off. Results Reviewed Results Reviewed: No imaging is available for review. Assessment & Plan Assessment & Plan (1) Cervical spondylosis: Code(s): M47.812 - Spondylosis without myelopathy or radiculopathy, cervical region Plan We will schedule him for a repeat bilateral C3-C4-C5 diagnostic MBBs injections in anticipation of radio frequency ablation. Discussed the risks and benefits of the procedure with the patient in detail. All questions were answered. The patient is on board with the plan. Justification for interventional therapy: ? Patient with average pain > 6/10 ? Patient has exhausted conservative therapy ? First diagnostic injection provided roughly 70% relief for the diagnostic phase Scribed for Dr. Busby by Chuy Pratt, medical office representative, on 08/08/2023. I, Dr. Busby, have personally reviewed and agree with the information entered by the scribe. Coding Level of Care Code Est Pt Level 3 (37223) Diagnoses Cervical spondylosis M47.812
[2023-08-08 10:08] VITALS: BP 119/57; PULSE 93; RESP 12; O2SAT 98; BMI 41.2
== END 2023-08-08 10:37 | disposition home or self-care (01) ==
PROVIDERS: PCP Internal Medicine; Visit Provider Internal Medicine
DX: M47.812 Spondylosis without myelopathy or radiculopathy, cervical region (principal)
CPT/HCPCS: 99213

== ENCOUNTER → 2023-08-08 09:51 | Outpatient (BNVA) | payer OTHER, SELFPAY | PROVIDERS: PCP Internal Medicine; Visit Provider Internal Medicine | DX: M47.812 Spondylosis without myelopathy or radiculopathy, cervical region (principal) | CPT/HCPCS: 99212 ==

== ENCOUNTER 2023-09-04 06:09 | Outpatient (REF) | payer OTHER, SELFPAY ==
--- NOTE | ~2023-09-04 | FL_ITS ---
EXAMINATION: XR FLUOROSCOPY WITH IMAGES CLINICAL INFORMATION: Cervical spondylosis, without myelopathy or radiculopathy. COMPARISON: Intraoperative fluoroscopy dated 08/07/2023. TECHNIQUE: Fluoroscopy Supervised By: Dr. Na Reynolds. Fluoroscopy Time: 0.3 minutes. Cumulative Dose: 9.39 mGy. DAP: 0.50286 Gycm2. Images: 6. FINDINGS: The submitted images show injection needles and injected contrast in the vicinity of the bilateral C3, C4 and C5 posterior elements. FL/FL guidance in treatment room IMPRESSION: Intraoperative fluoroscopic guidance is provided during bilateral cervical pain management procedure. Please see the patient's Operative Report for full procedural details.
== END 2023-09-04 06:10 | disposition home or self-care (01) ==
LOC: CF 06:09
PROVIDERS: Visit Provider Internal Medicine
DX: M47.812 Spondylosis without myelopathy or radiculopathy, cervical region (principal)
CPT/HCPCS: 64490; 64491; J2795; Q9967

== ENCOUNTER 2023-09-04 11:03 | Outpatient (AMB) | payer OTHER, SELFPAY ==
[2023-09-04 11:26] VITALS: BP 138/70; PULSE 56; RESP 16; O2SAT 99; BMI 41.2
--- NOTE | 2023-09-04 11:26 | MHC.OFFVIS ---
Intake Vital Signs 09/04/23 11:26 09/04/23 11:47 Height 5 ft 6 in Weight 255 lb BMI 41.2 BP 138/70 130/70 Blood Pressure Location Lt brachial Lt brachial Position Sitting Sitting Respiration 16 18 Pulse 56 80 Pulse Source Pulse Oximeter Pulse Oximeter Pulse Oximetry (%) 99 97 Oxygen Delivery Method Room Air Room Air Comment Pre-Op Post-Op Intake Visit Reasons: Thad Dx C3-C4-C5 MBB Allergies Sulfa (Sulfonamide Antibiotics) Allergy (Unknown, Verified 08/08/23 10:09) Unknown HPI Thad Dx C3-C4-C5 MBB HPI Details Patient presents for scheduled procedure. Denies any recent cough, cold, infection, fever or other significant changes in medical history since last office visit. [facility] Medical History (Updated 07/22/23 @ 11:26 by Blaise Busby MD) Chronic fatigue syndrome Cerebral infarction due to stenosis of carotid artery Migraine without aura Osteoarthritis of knee GERD (gastroesophageal reflux disease) Benign hypertension Dizziness and giddiness Male erectile disorder [place] filter in place Putti's syndrome Degeneration of lumbar intervertebral disc Intermittent asthma Social History (Updated 01/14/23 @ 11:10 by Jacque Elizabeth LPN) Patient Tobacco Use Status: Current everyday Tobacco user Tobacco use type: Cigarette Cigarettes Per Day: 4 Years Smoked: 30+ intermittently Physical Exam Vital Signs: Last Vital Signs Pulse 80 09/04/23 11:47 Resp 18 09/04/23 11:47 BP 130/70 09/04/23 11:47 Pulse Ox 97 09/04/23 11:47 Oxygen Delivery Method Room Air 09/04/23 11:47 BMI result Body Mass Index 41.2 Office Procedures Cervical/Thoracic Facet Inj Details: Diagnostic Cervical Medial Branch Block, Bilateral C3, C4, C5 medial branches After obtaining written consent, pre-procedure blood pressure and pulse were recorded and are in the nursing record for review. The patient was placed in a lateral position. The respective cervical area was prepped with chloraprep and draped in sterile fashion. The skin over the target medial branch nerves was anesthetized with 0.5% lidocaine. A 25 gauge 1.5 inch needle was inserted into the target medial branch nerve under fluoroscopic guidance. No paresthesias were elicited with needle placement and aspiration was negative for blood and CSF. Next, 0.2cc of omnipaque 180 was injected to verify positioning. Next 0.5 ml 0.5% ropivicaine was injected (0.5 cc total per level). The identical procedure was performed at the remaining levels. The skin was cleansed and a sterile bandage was applied. Following the procedure the patient's vital signs were stable. The patient tolerated the procedure well and no complications were encountered. Following the procedure the patient's vital signs were stable. The patient was discharged home in good condition with post-procedural instructions. Time Out: Immediately prior to the procedure, the following was verbally confirmed that there is a signed consent form and that the correct patient, planned procedure, site and side are consistent with documentation and that necessary equipment and/or blood products are available prior to the start of the case. Complications: none EBL: <5 cc 15362 - second level, with Fluoroscopy (Bilateral) Procedure code (CPT) selection complete Assessment & Plan Assessment & Plan (1) Cervical spondylosis: Code(s): M47.812 - Spondylosis without myelopathy or radiculopathy, cervical region Plan Patient is status post bilateral C3, C4, C5 diagnostic medial branch blocks. Patient tolerated procedure well and was discharged home in stable condition with discharge instructions. All questions were answered. We will follow-up via telephone or in clinic to assess response to therapy. A follow-up appointment was made during today's visit. Orders: Orders FL guidance in treatment room Today M47.812 - Spondylosis without myelopathy or radiculopathy, cervical region Coding Level of Care Code Procedure Only Diagnoses Cervical spondylosis M47.812 CPT Codes Facet Injection Cervical/Thoracic - CPT: 66652 - second level, with Fluoroscopy ([id number])
[2023-09-04 11:47] VITALS: BP 130/70; PULSE 80; RESP 18; O2SAT 97
== END 2023-09-04 11:41 | disposition home or self-care (01) ==
LOC: HO.PMCPRC 11:03
PROVIDERS: PCP Internal Medicine; Visit Provider Internal Medicine
DX: M47.812 Spondylosis without myelopathy or radiculopathy, cervical region (principal)
CPT/HCPCS: 64490; 64491

== ENCOUNTER 2023-09-08 09:21 | Outpatient (AMB) | payer OTHER, SELFPAY ==
[2023-09-08 09:40] VITALS: BP 121/56; PULSE 83; RESP 12; O2SAT 98; BMI 41.2
--- NOTE | 2023-09-08 09:40 | MHC.OFFVIS ---
Intake Vital Signs 09/08/23 09:40 Height 5 ft 6 in Weight 255 lb BMI 41.2 BP 121/56 L Blood Pressure Location Lt brachial Position Sitting Respiration 12 Pulse 83 Pulse Source Pulse Oximeter Pulse Oximetry (%) 98 Oxygen Delivery Method Room Air Intake Visit Reasons: s/p repeat elsa Dx C3-C4-C5 MBB Allergies Sulfa (Sulfonamide Antibiotics) Allergy (Unknown, Verified 09/08/23 09:41) Unknown Medication List - Last Reconciled 09/08/23 by Chelle Rivers LPN albuterol sulfate 90 mcg/actuation 2 puffs inhalation Q4-6H PRN aspirin 81 mg PO DAILY atorvastatin 80 mg PO BEDTIME azelastine (Astepro Allergy) 1 spray intranasal BID fluticasone propion-salmeterol 100-50 mcg/dose 1 inh inhalation BID hydrochlorothiazide 25 mg PO DAILY losartan 100 mg PO DAILY magnesium 200 mg PO BID melatonin 10 mg PO BEDTIME PRN omeprazole 20 mg PO DAILY pregabalin 75 mg PO BID tramadol 50 mg PO TID PRN HPI s/p repeat elsa Dx C3-C4-C5 MBB HPI Details 62-year-old male who presents today to the office for a status post repeat bilateral diagnostic C3-C4-C5 MBB. The patient reports 90% relief following the procedure for two days. He states that his pain returned to the baseline on Friday. His right side is worse than left side. He also reports longstanding history of shoulder pain. He is not taking any medication for anxiety since his stroke. He is amenable to proceed with RFA procedure. He still takes tramadol for pain. Past procedures: 09/04/23: Diagnostic Cervical Medial Branch Block, Bilateral C3, C4, C5 medial branches: 90% relief for two days. 08/07/2023: Diagnostic Cervical Medial Branch Block, Right C3, C4, C5 medial branches: 70% relief. 07/31/2023: Diagnostic Cervical Medial Branch Block, Left C3, C4, C5 medial branches: 75% relief. 06/25/23: Minimally Invasive Lumbar Decompression, Bilateral, L4-5, L5-S1 (L6): 60-70% relief. 03/19/23: Lumbar Medial Branch Block, Bilateral L3, L4 medial branches and L5 Dorsal Ramus (2 levels, 3 nerves): 50% relief. [facility] Medical History (Updated 07/22/23 @ 11:26 by Blaise Busby MD) Chronic fatigue syndrome Cerebral infarction due to stenosis of carotid artery Migraine without aura Osteoarthritis of knee GERD (gastroesophageal reflux disease) Benign hypertension Dizziness and giddiness Male erectile disorder [place] filter in place Putti's syndrome Degeneration of lumbar intervertebral disc Intermittent asthma Social History (Updated 01/14/23 @ 11:10 by Jacque Elizabeth LPN) Patient Tobacco Use Status: Current everyday Tobacco user Tobacco use type: Cigarette Cigarettes Per Day: 4 Years Smoked: 30+ intermittently Review of Systems Const All systems reviewed & are unremarkable except as noted in HPI and below Physical Exam Vital Signs: Last Vital Signs Pulse 83 09/08/23 09:40 Resp 12 09/08/23 09:40 BP 121/56 L 09/08/23 09:40 Pulse Ox 98 09/08/23 09:40 Oxygen Delivery Method Room Air 09/08/23 09:40 BMI result Body Mass Index 41.2 General: Appears afebrile. Alert and oriented. Mood and affect appropriate. Follows and participates in conversation appropriately. Respiratory effort is unlabored. Able to transition from sit to stand unassisted. Ambulates with bilaterally normal heel strike and toe off. Results Reviewed Results Reviewed: No imaging is available for review. Assessment & Plan Assessment & Plan (1) Cervical spondylosis: Code(s): M47.812 - Spondylosis without myelopathy or radiculopathy, cervical region Plan We will schedule him for a C3-C4-C5 medial branch radiofrequency ablation starting with the right side and followed by left side one week later. Discussed the risks and benefits of the procedure with the patient in detail. All questions were answered. The patient is on board with the plan. I sent a script of lorazepam for the patient to take one hour before the procedure for preprocedural anxiety. He will also take his regular Tramadol to help with the post procedure pain. Justification for interventional therapy: ? Patient with average pain > 6/10 ? Patient has exhausted conservative therapy ? Patient unable to tolerate physical therapy due to pain ? Diagnostic injections provided greater than 80% relief on average . Patient has a good understanding of their pain condition and has appropriate mental and social support Scribed for Dr. Busby by Chuy Pratt, center medical specialist, on 09/08/2023. I, Dr. Busby, have personally reviewed and agree with the information entered by the scribe. Medications: New lorazepam Take 1 pill 1 hour before procedure. May repeat once 1 mg PO DAILY PRN 2 tabs 0RF pre-procedure anxiety Coding Level of Care Code Est Pt Level 3 (34053) Diagnoses Cervical spondylosis M47.812
== END 2023-09-08 10:20 | disposition home or self-care (01) ==
PROVIDERS: PCP Internal Medicine; Visit Provider Internal Medicine
DX: M47.812 Spondylosis without myelopathy or radiculopathy, cervical region (principal)
CPT/HCPCS: 99213

== ENCOUNTER → 2023-09-08 09:21 | Outpatient (BNVA) | payer OTHER, SELFPAY | PROVIDERS: PCP Internal Medicine; Visit Provider Internal Medicine | DX: M47.812 Spondylosis without myelopathy or radiculopathy, cervical region (principal) | CPT/HCPCS: 99212 ==

== ENCOUNTER 2023-10-09 06:12 | Outpatient (REF) | payer OTHER, SELFPAY ==
--- NOTE | ~2023-10-09 | FL_ITS ---
EXAMINATION: XR FLUOROSCOPY WITH IMAGES CLINICAL INFORMATION: Fluoroscopic guidance provided for procedure. Spondylosis without myelopathy or radiculopathy cervical region. Cervical RFA. COMPARISON: None available. TECHNIQUE: Fluoroscopy Supervised By: Dr. Busby. Fluoroscopy Time: 0.2. Cumulative Dose: 1.74 mGy. DAP: 0.0149 Gycm2. Images: 2. FINDINGS: Fluoroscopic guidance provided for procedure. Images provided demonstrate 3 needles along the posterior aspect of the cervical spine. Please refer to operative report for detailed evaluation. FL/FL guidance in treatment room IMPRESSION: Fluoroscopic guidance provided for procedure. Please refer to operative report for detailed evaluation.
== END 2023-10-09 06:13 | disposition home or self-care (01) ==
LOC: CF 06:12
PROVIDERS: Visit Provider Internal Medicine
DX: M47.812 Spondylosis without myelopathy or radiculopathy, cervical region (principal)
CPT/HCPCS: 64633; 64634

== ENCOUNTER 2023-10-09 12:49 | Outpatient (AMB) | payer OTHER, SELFPAY ==
[2023-10-09 12:55] VITALS: BP 128/90; PULSE 63; RESP 16; O2SAT 100; BMI 41.2
--- NOTE | 2023-10-09 12:55 | A.OFFVIS_ITS ---
Vital Signs 10/09/23 12:55 10/09/23 13:41 Height 5 ft 6 in 5 ft 6 in Weight 255 lb 255 lb BMI 41.2 41.2 BP 128/90 H 136/70 Blood Pressure Location Lt brachial Lt brachial Position Sitting Sitting Respiration 16 16 Pulse 63 64 Pulse Source Pulse Oximeter Pulse Oximeter Pulse Oximetry (%) 100 100 Oxygen Delivery Method Room Air Room Air Comment pre-op post-op Intake Visit Reasons: Right C3-C4-C5 RFA Allergies Sulfa (Sulfonamide Antibiotics) Allergy (Unknown, Verified 10/09/23 12:56) Unknown HPI HPI Right C3-C4-C5 RFA: Details: Patient presents for scheduled procedure. Denies any recent cough, cold, infecti on, fever or other significant changes in medical history since last office visit. [facility] Medical History (Updated 07/22/23 @ 11:26 by Blaise Busby MD) Chronic fatigue syndrome Cerebral infarction due to stenosis of carotid artery Migraine without aura Osteoarthritis of knee GERD (gastroesophageal reflux disease) Benign hypertension Dizziness and giddiness Male erectile disorder [place] filter in place Putti's syndrome Degeneration of lumbar intervertebral disc Intermittent asthma Social History (Updated 01/14/23 @ 11:10 by Jacque Elizabeth LPN) Patient Tobacco Use Status: Current everyday Tobacco user Tobacco use type: Cigarette Cigarettes Per Day: 4 Years Smoked: 30+ intermittently Physical Exam Vital Signs: Last Vital Signs Pulse 64 10/09/23 13:41 Resp 16 10/09/23 13:41 BP 136/70 10/09/23 13:41 Pulse Ox 100 10/09/23 13:41 Oxygen Delivery Method Room Air 10/09/23 13:41 BMI result Body Mass Index 41.2 Office Procedures Details: Radiofrequency lesioning medial branch nerves, Right C3, C4, C5 medial branches (2 levels, 3 nerves) After obtaining written consent, pre-procedure blood pressure and heart rate were stable and recorded in the nursing record. The patient was placed in the prone position. The lumbar area was prepped with chloraprep and draped in sterile fashion. The skin over the target for each medial branch nerve was anesthetized with 0.5% lidocaine. An 18 gauge radiofrequency cannula was advanced to each target site under fluoroscopic guidance. No paresthesias were elicited with needle placement and aspiration was negative for heme and CSF. Impedences were verified under 600 ohms. Motor testing (2 Hz) confirmed needle placement at each site within the appropriate voltage thresholds. Each site was injected with 0.5 ml 2% preservative-free lidocaine. Radiofrequency lesioning was performed for 90 seconds at 80 deg Celcius. Each site was then injected with 0.5ml 2% lidocaine. The needle was removed, skin cleansed and a sterile bandage was applied. The patient tolerated the procedure well and no complications were encountered. Following the procedure the patient's vital signs were stable. The patient was discharged home in good condition with post-procedural instructions. Time Out: Immediately prior to the procedure, the following was verbally confirmed that there is a signed consent form and that the correct patient, planned procedure, site and side are consistent with documentation and that necessary equipment and/or blood products are available prior to the start of the case. Complications: none EBL: <5 cc 70305 - RFA Cervical Medial Branches 98596 - Cervical Medial Branches ADDNL Procedure code (CPT) selection complete Office Meds lidocaine (PF) 50 mg/5 mL (1 %) injection syringe Performing Provider: Blaise Busby MD Performing Location: [facility] Administered by: Blaise Busby MD on 10/09/23 14:46 Dose Route Admin Location Dispensed Lot Number Expiration Date [facility] [employer] 2 mL Infiltration 5 mL [id number] [facility] [employer] ropivacaine (PF) 5 mg/mL (0.5 %) injection solution Performing Provider: Blaise Busby MD Performing Location: [facility] Documented (not given) by: Blaise Busby MD on 10/09/23 14:46 Reason Not Given: Not Medically Necessary Assessment & Plan Assessment & Plan (1) Cervical spondylosis: Code(s): M47.812 - Spondylosis without myelopathy or radiculopathy, cervical region Category: Medical Plan Patient is status post radiofrequency ablation of right C3, C4, C5 medial branches. Patient tolerated procedure well and was discharged home in stable condition with discharge instructions. All questions were answered. We will follow-up via telephone or in clinic to assess response to therapy. A follow-up appointment was made during today's visit. Orders: Orders AMB RFA Radiofrequency Ablation Pain Management Today M47.812 - Spondylosis without myelopathy or radiculopathy, cervical region FL guidance in treatment room Today M47.812 - Spondylosis without myelopathy or radiculopathy, cervical region Coding Level of Care Code Procedure Only Diagnoses Cervical spondylosis M47.812 CPT Codes Radiofrequency Ablation - Rad-Ablation 1: 57150 - RFA Cervical Medial Branches ([id number]) Radiofrequency Ablation - Rad-Ablation 2: 91223 - Cervical Medial Branches ADDNL ([id number])
[2023-10-09 13:41] VITALS: BP 136/70; PULSE 64; RESP 16; O2SAT 100; BMI 41.2
== END 2023-10-09 13:30 | disposition home or self-care (01) ==
LOC: HO.PMCPRC 12:49
PROVIDERS: PCP Internal Medicine; Visit Provider Internal Medicine
DX: M47.812 Spondylosis without myelopathy or radiculopathy, cervical region (principal)
CPT/HCPCS: 64633; 64634

== ENCOUNTER 2023-10-16 06:13 | Outpatient (REF) | payer OTHER, SELFPAY ==
--- NOTE | ~2023-10-16 | FL_ITS ---
EXAMINATION: Intraoperative fluoroscopy CLINICAL INFORMATION: Spondylosis COMPARISON: Intraoperative fluoroscopy 10/09/2023 TECHNIQUE: Intraoperative fluoroscopy was provided for use by Dr. Reynolds. A total of 6 images were saved to PACS. A radiologist was not present during imaging. Today's dictation is only for administrative purposes to document intraoperative fluoroscopic usage. TOTAL FLUOROSCOPIC TIME: 0.3 minutes DAP: 0.02 mGy-cm FL/FL guidance in treatment room FINDINGS~\^^ Intraoperative fluoroscopy provided for use by Dr. Reynolds. Please see operative note for detailed findings.
== END 2023-10-16 06:14 | disposition home or self-care (01) ==
LOC: CF 06:13
PROVIDERS: Visit Provider Internal Medicine
DX: M47.812 Spondylosis without myelopathy or radiculopathy, cervical region (principal)
CPT/HCPCS: 64633; 64634

== ENCOUNTER 2023-10-16 10:23 | Outpatient (AMB) | payer OTHER, SELFPAY ==
--- NOTE | 2023-10-16 10:37 | A.OFFVIS_ITS ---
Vital Signs 10/16/23 12:16 10/16/23 12:17 Height 5 ft 6 in Weight 255 lb BMI 41.2 BP 116/68 124/76 Blood Pressure Location Lt brachial Lt brachial Position Sitting Sitting Respiration 18 20 Pulse 78 90 Pulse Source Pulse Oximeter Pulse Oximeter Pulse Oximetry (%) 96 95 Oxygen Delivery Method Room Air Room Air Comment Pre-Op Post-Op Intake Visit Reasons: Left C3-C4-C5 RFA Allergies Sulfa (Sulfonamide Antibiotics) Allergy (Unknown, Verified 10/09/23 12:56) Unknown HPI HPI Left C3-C4-C5 RFA: Details: Patient presents for scheduled procedure. Denies any recent cough, cold, infection, fever or other significant changes in medical history since last office visit. [facility] Medical History (Updated 07/22/23 @ 11:26 by Blaise Busby MD) Chronic fatigue syndrome Cerebral infarction due to stenosis of carotid artery Migraine without aura Osteoarthritis of knee GERD (gastroesophageal reflux disease) Benign hypertension Dizziness and giddiness Male erectile disorder [place] filter in place Putti's syndrome Degeneration of lumbar intervertebral disc Intermittent asthma Social History (Updated 01/14/23 @ 11:10 by Jacque Elizabeth LPN) Patient Tobacco Use Status: Current everyday Tobacco user Tobacco use type: Cigarette Cigarettes Per Day: 4 Years Smoked: 30+ intermittently Physical Exam Vital Signs: Last Vital Signs Pulse 90 10/16/23 12:17 Resp 20 10/16/23 12:17 BP 124/76 10/16/23 12:17 Pulse Ox 95 10/16/23 12:17 Oxygen Delivery Method Room Air 10/16/23 12:17 BMI result Body Mass Index 41.2 Office Procedures Details: Radiofrequency lesioning cervical medial branch nerves, Left C3, C4 and C5 After obtaining written consent, pre-procedure blood pressure and heart rate were stable and recorded in the nursing record. The patient was placed in the prone position. The?cervical?area was prepped with chloraprep and draped in sterile fashion. The skin over the target for each medial branch nerve was anesthetized with 0.75% lidocaine. An 18 gauge radiofrequency cannula was advanced to each target site under fluoroscopic guidance. No paresthesias were elicited with needle placement and aspiration was negative for heme and CSF. Impedences were verified under 600 ohms. Sensory testing (50 Hz) and then motor testing (2 Hz) confirmed needle placement at each site within the appropriate voltage thresholds. Each site was injected with 1 ml 2% preservative-free lidocaine. Radiofrequency lesioning was performed fo 90 deg Celc[place] in 3 short intervals of 30 seconds each. Due to procedural discomfort, the patient could not tolerate a lesioning longer than the 30 seconds. The needles were then removed, skin cleansed and a sterile bandage was applied. The patient tolerated the procedure well and no complications were encountered. Following the procedure the patient's vital signs were stable. The patient was discharged home in good condition with post-procedural instructions. Time Out: Immediately prior to the procedure, the following was verbally confirmed that there is a signed consent form and that the correct patient, planned procedure, site and side are consistent with documentation and that necessary equipment and/or blood products are available prior to the start of the case. Complications: none EBL: <5 cc 47659 - RFA Cervical Medial Branches 36315 - Cervical Medial Branches ADDNL Procedure code (CPT) selection complete Assessment & Plan Assessment & Plan (1) Cervical spondylosis: Code(s): M47.812 - Spondylosis without myelopathy or radiculopathy, cervical region Category: Medical Plan Patient is status post left C3, C4, C5 medial branch radiofrequency ablation. Patient tolerated procedure well and was discharged home in stable condition with discharge instructions. All questions were answered. We will follow-up via telephone or in clinic to assess response to therapy. A follow-up appointment was made during today's visit. Orders: Orders FL guidance in treatment room Today M47.812 - Spondylosis without myelopathy or radiculopathy, cervical region Coding Level of Care Code Procedure Only Diagnoses Cervical spondylosis M47.812 CPT Codes Radiofrequency Ablation - Rad-Ablation 1: 61419 - RFA Cervical Medial Branches ([id number]) Radiofrequency Ablation - Rad-Ablation 2: 77218 - Cervical Medial Branches ADDNL ([id number])
[2023-10-16 12:16] VITALS: BP 116/68; PULSE 78; RESP 18; O2SAT 96; BMI 41.2
[2023-10-16 12:17] VITALS: BP 124/76; PULSE 90; RESP 20; O2SAT 95
== END 2023-10-16 12:09 | disposition home or self-care (01) ==
LOC: HO.PMCPRC 10:23
PROVIDERS: PCP Internal Medicine; Visit Provider Internal Medicine
DX: M47.812 Spondylosis without myelopathy or radiculopathy, cervical region (principal)
CPT/HCPCS: 64633; 64634

== ENCOUNTER 2023-10-31 09:20 | Outpatient (AMB) | payer OTHER, SELFPAY ==
--- NOTE | 2023-10-31 09:45 | MHC.OFFVIS ---
Vital Signs 10/31/23 09:46 Height 5 ft 6 in Weight 262 lb 4 oz BMI 42.3 BP 147/62 H Blood Pressure Location Lt brachial Position Sitting Respiration 18 Pulse 81 Pulse Source Pulse Oximeter Pulse Oximetry (%) 98 Oxygen Delivery Method Room Air Intake Visit Reasons: s/p elsa C3-C4-C5 RFA Allergies Sulfa (Sulfonamide Antibiotics) Allergy (Unknown, Verified 10/31/23 09:45) Unknown HPI HPI s/p elsa C3-C4-C5 RFA: Details: 62-year-old male who presents today to the office for a status post bilateral C3-C4-C5 RFA. The patient reports 80% relief following the procedure in the beginning of the day for his overall symptoms But then his pain tends to get worse over the course of the day. By the end of the day, he only has about 60% of the relief overall. He is pleased with the level of relief that he has gotten from the RFA, but he still continues to take Lyrica and Tramadol to help manage his pain exacerbations. He continues to be engaged in a home exercise program and stretching and strengthening exercises as?usual. He reports a new right occipital pain since the RFA, but it is gradually improving. He also reports that the left shoulder pain that he has had since his rotator cuff repair has resolved after the RFA. Past procedures 10/16/23: Radiofrequency lesioning cervical medial branch nerves, Left C3, C4 and C5: 60-80% relief. 10/09/23: Radiofrequency lesioning medial branch nerves, Right C3, C4, C5 medial branches (2 levels, 3 nerves): 60-80% relief. 09/04/23: Diagnostic Cervical Medial Branch Block, Bilateral C3, C4, C5 medial branches: 90% relief for two days. 08/07/2023: Diagnostic Cervical Medial Branch Block, Right C3, C4, C5 medial branches: 70% relief. 07/31/2023: Diagnostic Cervical Medial Branch Block, Left C3, C4, C5 medial branches: 75% relief. 06/25/23: Minimally Invasive Lumbar Decompression, Bilateral, L4-5, L5-S1 (L6): 60-70% relief. 03/19/23: Lumbar Medial Branch Block, Bilateral L3, L4 medial branches and L5 Dorsal Ramus (2 levels, 3 nerves): 50% relief. [facility] Medical History (Updated 07/22/23 @ 11:26 by Blaise Busby MD) Chronic fatigue syndrome Cerebral infarction due to stenosis of carotid artery Migraine without aura Osteoarthritis of knee GERD (gastroesophageal reflux disease) Benign hypertension Dizziness and giddiness Male erectile disorder [place] filter in place Putti's syndrome Degeneration of lumbar intervertebral disc Intermittent asthma Social History (Updated 01/14/23 @ 11:10 by Jacque Elizabeth LPN) Patient Tobacco Use Status: Current everyday Tobacco user Tobacco use type: Cigarette Cigarettes Per Day: 4 Years Smoked: 30+ intermittently Review of Systems Const All systems reviewed & are unremarkable except as noted in HPI and below Physical Exam Vital Signs: Last Vital Signs Pulse 81 10/31/23 09:46 Resp 18 10/31/23 09:46 BP 147/62 H 10/31/23 09:46 Pulse Ox 98 10/31/23 09:46 Oxygen Delivery Method Room Air 10/31/23 09:46 BMI result Body Mass Index 42.3 General: Appears afebrile. Alert and oriented. Mood and affect appropriate. Follows and participates in conversation appropriately. Respiratory effort is unlabored. Able to transition from sit to stand unassisted. Ambulates with bilaterally normal heel strike and toe off. Results Reviewed Results Reviewed: No imaging is available for review. Assessment & Plan Assessment & Plan (1) Cervical spondylosis: Code(s): M47.812 - Spondylosis without myelopathy or radiculopathy, cervical region Category: Medical Plan Ivan has had a good response to cervical medial radiofrequency ablation. He does not have complete relief, but he is satisfied with the amount of relief that he has. I discussed the trial of temporary medial branch nerve stimulation as a next step after six months in case his symptoms return or start to get worse again. He is on board with the plan. He will return to us for follow-up in March to discuss potential cervical medial branch stimulation. Scribed for Dr. Busby by Chuy Pratt, medical records auditor, on 10/31/2023. I, Dr. Busby, have personally reviewed and agree with the information entered by the scribe. Coding Level of Care Code Est Pt Level 3 (95459) Diagnoses Cervical spondylosis M47.812
[2023-10-31 09:46] VITALS: BP 147/62; PULSE 81; RESP 18; O2SAT 98; BMI 42.3
== END 2023-10-31 10:01 | disposition home or self-care (01) ==
PROVIDERS: PCP Internal Medicine; Visit Provider Internal Medicine
DX: M47.812 Spondylosis without myelopathy or radiculopathy, cervical region (principal)
CPT/HCPCS: 99213

== ENCOUNTER → 2023-10-31 09:20 | Outpatient (BNVA) | payer OTHER, SELFPAY | PROVIDERS: PCP Internal Medicine; Visit Provider Internal Medicine | DX: M47.812 Spondylosis without myelopathy or radiculopathy, cervical region (principal) | CPT/HCPCS: 99212 ==